=== PATIENT | female | born 1955 | race African-American/Black ===

== ENCOUNTER 2025-02-08 21:44 | Emergency (ER) | payer MEDICARE, MEDICAID ==
[~2025-02-08] VITALS: Ht 152.4 cm; Wt 45.0 kg
[2025-02-08] MEDS: METHYLPREDNISOLONE SOD SUCC 125MG/2ML (ACT-O-VIAL) IV ONE (22:28)
[2025-02-08] MEDS: FAMOTIDINE 20MG/2ML VIAL IV ONE (22:28)
[2025-02-08 22:49] LABS: BASOPHILS % 1.1 % (0.0-2.0); EOSINOPHILS % 8.1 % (0.0-5.0); HEMATOCRIT. 31.5 % (36.0-48.0); HEMOGLOBIN. 10.3 g/dL (12.0-16.0); LYMPHOCYTES % 38.6 % (20.0-50.0); MEAN CORPUSCULAR HEMOGLOBIN 26.9 pg (28.0-32.0); MEAN CORPUSCULAR HGB CONC 32.6 g/dL (31.0-37.0); MEAN CORPUSCULAR VOLUME 82.5 fL (81.0-99.0); MEAN PLATELET VOLUME 7.4 fl (7.4-10.4); MONOCYTES % 13.4 % (2.0-8.0); NEUTROPHILS % 38.8 % (40.0-76.0); PLATELET 268 x1000/uL (130-400); RED BLOOD CELL COUNT 3.82 mill/uL (4.2-5.4); WHITE BLOOD COUNT 4.6 x1000/uL (4.5-11.0)
[2025-02-08] MEDS: ALBUTEROL (0.083%) 2.5MG/3ML NEB HHN SCH (22:59)
[2025-02-08 23:00] VITALS: PULSE 74; RESP 22; O2SAT 100
[2025-02-08 23:00] LABS: POTASSIUM 4.2 mEq/L (3.5-5.1)
[2025-02-08 23:02] LABS: CALCIUM 9.5 mg/dL (8.7-10.4)
[2025-02-08 23:06] LABS: CREATININE 1.3 mg/dL (0.6-1.0)
[2025-02-09 00:15] VITALS: TEMP 36.6
[2025-02-09] MEDS: IPRATROPIUM/ALBUTEROL 0.5-3(2.5)MG/3ML NEB HHN ONE (00:43)
[2025-02-09 00:45] VITALS: PULSE 84; RESP 20; O2SAT 100
[2025-02-09] MEDS: DIPHENHYDRAMINE 50MG/ML VIAL IV ONE (01:34)
[2025-02-09] MEDS ORDERED: EPIN0.3P3 IM (01:37)
[2025-02-09] MEDS ORDERED: P50 MT (01:37)
[2025-02-09 02:04] VITALS: BP 103/53; PULSE 95; RESP 25; O2SAT 99
== END 2025-02-09 02:14 | disposition home or self-care (01) ==
LOC: ER 21:44 → EDBEDREQ 02-09 01:25 → EDBEDREQTM 02-09 01:25 → ER 02-09 02:14
DX: T78.40XA Allergy, unspecified, initial encounter (principal); R06.02 Shortness of breath; E11.9 Type 2 diabetes mellitus without complications; I10 Essential (primary) hypertension; Z91.030 Bee allergy status; Y92.89 Other specified places as the place of occurrence of the external cause
CPT/HCPCS: 99284; 96374; 96375 ×2; 80048; 85025; 36415; 94640; J2919; J3490; J1200